=== PATIENT | female | born 1945 | race Caucasian/White ===

== ENCOUNTER 2018-12-19 11:39 | Outpatient (CLI) | payer MEDICARE ==
--- NOTE | 2018-12-19 13:01 | ULT ---
BILATERAL CAROTID DUPLEX ULTRASOUND: HISTORY: Carotid bruit TECHNIQUE: Grayscale, color-flow and spectral Doppler ultrasound imaging of the extracranial carotid artery syst ems and vertebral arteries was performed bilaterally. FINDINGS: There is mild atherosclerotic plaque involving the proximal left external carotid artery and distal r ight common carotid artery. The peak systolic velocity in the right ICA measures 96.2 cm/s. The peak systolic velocity in the ri ght CCA measures 81.8 cm/s. The peak systolic velocity in the left ICA measures 82.1 cm/s. The peak systolic velocity in the l eft CCA measures 94.8 cm/s. The right IC/CC ration is1.17. The left IC/CC ratio is 0.87. Vertebral flow: antegrade, bilaterally. . IMPRESSION: No hemodynamically significant stenosis of internal carotid arteries.
== END 2018-12-19 11:40 | disposition home or self-care (01) ==
LOC: BICULT 11:39
PROVIDERS: ATTEND Family Medicine
DX: R09.89 Other specified symptoms and signs involving the circulatory and respiratory systems (principal)
CPT/HCPCS: 93880

== ENCOUNTER 2024-05-03 15:24 | Inpatient (IN) | payer OTHER ==
[2024-05-03 15:52] VITALS: BMI 37.8
[2024-05-03] MEDS ORDERED: Acetaminophen 650 MG Suppository PR PRN (17:35)
[2024-05-03] MEDS ORDERED: Acetaminophen 325 MG TAB PO PRN (17:35)
[2024-05-03] MEDS ORDERED: Labetalol HCl 100 MG/20 ML VIAL SLOW IVP PRN (17:35)
[2024-05-03] MEDS ORDERED: hydrALAZINE 20 MG/ML VIAL SLOW IVP PRN (17:35)
[2024-05-03] MEDS ORDERED: Meclizine HCl 12.5 MG TAB PO PRN (17:42)
[2024-05-03] MEDS ORDERED: Ondansetron PF 4 MG/2 ML Vial IVP PRN (17:48)
[2024-05-03] MEDS ORDERED: Ondansetron ODT 4 MG TAB PO PRN (17:48)
[2024-05-03] MEDS ORDERED: traMADol HCl 50 MG TAB PO PRN (18:14)
[2024-05-03] MEDS ORDERED: Glucagon 1 MG/ML KIT IM PRN (18:16)
[2024-05-03] MEDS ORDERED: Dextrose 50% Abboject 50 ML SYRINGE SLOW IVP PRN (18:16)
[2024-05-03] MEDS ORDERED: Dextrose 5% in Water 1,000 ML IV PRN (18:16)
[2024-05-03] MEDS: Famotidine 20 MG TAB PO SCH (20:38)
[2024-05-03] MEDS: Gabapentin 300 MG CAP PO SCH (20:38)
[2024-05-03] MEDS: Latanoprost 0.005% Ophth Soln 2.5 ml Bottle EA EYE SCH (20:39)
[2024-05-03] MEDS: Rosuvastatin 20 MG TAB PO SCH (20:40)
[2024-05-04 03:51] LABS: #Basophils 0.03 10x3/uL (0.0-0.2); %Basophils 0.4 % (0.0-1.0); %Eosinophils 2.1 % (0.0-10.0); %Lymphocytes 26.6 % (21.0-51.0); %Monocytes 11.3 % (0.0-10.0); %Neutrophils 59.2 % (42.0-75.0); Hematocrit 39.6 % (36.0-47.0); Hemoglobin 13.7 g/dL (12.0-16.0); Mean Corpuscular HGB CONC 34.6 g/dL (32.0-36.0); Mean Corpuscular Hemoglobin 28.8 pg (27.0-31.0); Mean Corpuscular Volume 83.4 fL (78.0-98.0); Mean Platelet Volume 9.3 fL (7.4-10.4); Platelet Count 219 10x3/uL (130-400); RBC Distribution Width 13.2 % (11.5-14.5); Red Blood Cell (RBC) Count 4.75 mill/uL (4.20-5.40)
[2024-05-04 04:07] LABS: Hemoglobin A1c 7.2 % (4.0-6.0)
[2024-05-04 04:17] LABS: Anion Gap 12 mmol/L (10-20); BUN (Urea Nitrogen) 12 mg/dL (9.8-20.1); Calc. Creatinine Clearance 74 mL/min (70-130); Calcium 8.5 mg/dL (7.8-10.44); Carbon Dioxide 25 mmol/L (23-31); Cardiac Risk 3.9 (Less than 4.5); Chloride 104 mmol/L (98-107); Cholesterol 131 mg/dl (< 200 Desired); Estimated GFR 67; Glucose 151 mg/dL (83-110); HDL Cholesterol 34 mg/dL (>60 Neg Risk); LDL Cholesterol, Calculated 46 mg/dL; Potassium 3.8 mmol/L (3.5-5.1); Sodium 137 mmol/L (136-145); Triglycerides 254 mg/dL (Less than 150)
[2024-05-04] MEDS: Metoprolol Tartrate 25 MG TAB PO SCH (08:51)
[2024-05-04] MEDS: Aspirin 81 mg Enteric Coated Tablet PO SCH (08:51)
[2024-05-04] MEDS: Insulin Lispro 100 UNIT/ML 10 ML VIAL SC PRN ×2 (13:29→20:02)
[2024-05-04] MEDS: Sodium Chloride 0.9% 1,000 ML IV SCH (13:30)
[2024-05-04] MEDS: HumuLIN 70/30 100 Unit/ml 10 ml Vial SC SCH (18:14)
[2024-05-05] MEDS: Amlodipine 5 MG TAB PO SCH (13:58)
[2024-05-05] MEDS: HumuLIN 70/30 100 Unit/ml 10 ml Vial SC SCH (17:51)
[2024-05-06] MEDS: Amlodipine 5 MG TAB PO SCH (08:15)
[2024-05-06 12:51] VITALS: TEMP 97.1
[2024-05-06 12:56] VITALS: BP 183/77
== END 2024-05-06 14:41 | disposition home or self-care (01) | DRG 149 ==
LOC: 2SE 15:24 → OBSVTOIN 18:33
PROVIDERS: ADMIT Internal Medicine; ATTEND Internal Medicine
DX: R42 Dizziness and giddiness (principal); R53.1 Weakness; I10 Essential (primary) hypertension; E66.9 Obesity, unspecified; E78.5 Hyperlipidemia, unspecified; E11.51 Type 2 diabetes mellitus with diabetic peripheral angiopathy without gangrene; E11.40 Type 2 diabetes mellitus with diabetic neuropathy, unspecified; Z79.4 Long term (current) use of insulin; Z88.8 Allergy status to other drugs, medicaments and biological substances; Z79.899 Other long term (current) drug therapy; Z79.82 Long term (current) use of aspirin
CPT/HCPCS: 36415; 36416; 70551; 80048; 80061; 83036; 84443; 85025; 93306; 93880; 93923; G0378; J1815; J7030